=== PATIENT | male | born 1980 | race Caucasian/White ===

== ENCOUNTER 2017-12-19 04:55 | Emergency (ER) | END 2017-12-19 07:17 | disposition home or self-care (01) ==

== ENCOUNTER 2018-08-08 08:17 | Emergency (ER) | END 2018-08-08 09:38 | disposition home or self-care (01) ==

== ENCOUNTER 2018-11-29 13:06 | Day surgery (SDC) | payer OTHER ==
[~2018-11-29] VITALS: Ht 167.6 cm; Wt 76.0 kg
[~2018-11-29 13:06] MED LIST: CEPH-443 PO; DOCU-144 PO; HYDR25SU23 PR; NAPR-985 PO; POLY17PO6 PO
[2018-11-29] MEDS ORDERED: ATORVASTATIN (13:45)
[2018-11-29] MEDS ORDERED: DIGESTIVE ENZYMES (13:45)
[2018-11-29 13:50] VITALS: Ht 167.6 cm; Wt 76.0 kg
[2018-11-29 14:06] VITALS: BP 106/66; PULSE 72; RESP 18
--- NOTE | 2018-11-29 14:59 | PREAC ---
Date/Time of Note Date/Time of Note DATE: 11/29/18 TIME: 14:58 Anesthesia Eval and Record Evaluation Time Pre-Procedure Interview DATE: 11/29/18 TIME: 14:58 Age 38 Sex male NPO: 8 hrs Preoperative diagnosis Lower GI bleeding Planned procedure Colonoscopy Past Medical History Past Medical History: Includes Cardio: Dyslipidemia Surgery & Anesthesia Issues No known issue Meds Anticoagulation: No Beta Paul within 24 hr: No Reason Beta Paul not given: Pt. not on B-Paul Active Scripts Docusate Sodium* (Colace*) 100 Mg Capsule, 100 MG PO TID, #30 CAP Prov:MAIKEL HALL PA-C 08/08/18 Reported Medications [Digestive Enzymes] No Conflict Check 11/29/18 [Atorvastatin] No Conflict Check 11/29/18 Discontinued Reported Medications [None] No Conflict Check 03/12/12 Discontinued Scripts Polyethylene Glycol* (Miralax*) 17 Gm Powd.pack, 17 GM PO DAILY PRN for CONSTIPATION, #7 Prov:MAIKEL HALL PA-C 08/08/18 Hydrocortisone Acetate (Anusol-Hc) 25 Mg Supp.rect, 1 SUPP UT QHS PRN for HEMORROID PAIN/ITCHING, #12 SUPP.RECT Prov:MAIKEL HALL PA-C 08/08/18 Naproxen* (Naprosyn*) 500 Mg Tablet, 500 MG PO BID PRN for PAIN AND/OR INFLAMMATION, #30 TAB Prov:EMILEE SALAZAR PA-C 12/19/17 Cephalexin* (Keflex*) 500 Mg Capsule, 500 MG PO QID for 7 Days, CAP Prov:EMILEE SALAZAR PA-C 12/19/17 Meds reviewed: Yes Allergies Coded Allergies: No Known Allergies (Verified Allergy, Unknown, 08/08/18) Allergies Reviewed: Yes Labs/Studies Labs Reviewed: Reviewed by anesthesiologist test: N/A Studies: ECG (n/a), CXR (n/a) Pre-procedure Exam Last vitals Vital Signs Date Temp Pulse Resp B/P (MAP) Pulse Ox O2 O2 Flow FiO2 Time Delivery Rate 11/29/18 98.1 72 18 106/66 98 Room Air 14:06 (79) Airway: Adequate mouth opening, Adequate thyromental dist Mallampati: Mallampati II Teeth: Normal Lung: Normal Heart: Normal ASA Physical Status ASA physical status: 2 Emergency: None Planned Anesthetic General/MAC: MAC Planned Pain Management Parenteral pain med Pre-operative Attestations Prior to commencing anesthesia and surgery, the patient was re-evaluated, there was verification of: *The patient's identity *The results of appropriate recent lab work and preoperative vital signs *The above evaluation not changing prior to induction *Anesthetic plan, risk benefits, alternative and complications discussed with patient/family; questions answered; patient/family understands, accepts and wishes to proceed. MIRZA BIRCH MD Nov 29, 2018 14:59
--- NOTE | 2018-11-29 15:48 | PAC ---
Date/Time of Note Date/Time of Note DATE: 11/29/18 TIME: 15:47 Post-Anesthesia Notes Post-Anesthesia Note Last documented vital signs Vital Signs Date Temp Pulse Resp B/P (MAP) Pulse Ox O2 O2 Flow FiO2 Time Delivery Rate 11/29/18 98.1 72 18 106/66 98 Room Air 14:46 (79) Activity: WNL Respiratory function: WNL Cardiovascular function: WNL Mental status: Baseline Pain reasonably controlled: Yes Hydration appropriate: Yes Nausea/Vomiting absent: Yes MIRZA BIRCH MD Nov 29, 2018 15:48
[2018-11-29] MEDS ORDERED: PROPOFOL 40 ML ONE (15:58)
== END 2018-11-29 16:46 | disposition home or self-care (01) ==
LOC: GIL 13:06
PROVIDERS: ATTEND Internal Medicine Gastroenterology
DX: K64.8 Other hemorrhoids (principal); E78.5 Hyperlipidemia, unspecified
CPT/HCPCS: 45378; Z7610